=== PATIENT | female | born 1995 | race African-American/Black ===

== ENCOUNTER 2021-09-17 13:47 | Emergency (ER) | payer OTHER ==
[2021-09-17 14:15] VITALS: BP 117/75; PULSE 98; TEMP 98.4; BMI 29.3
[2021-09-17 17:07] LABS: EPI CELLS 30 /uL (0-25.1); HCG,QUALITATIVE URINE Negative; HYALINE CASTS 16 /uL (0-3.1); PH,URINE 5.5 (5.0-8.0); URINE APPEARANCE TURBID; URINE BACTERIA 98 /uL (0-1359); URINE BILIRUBIN NEGATIVE (NEGATIVE); URINE COLOR YELLOW; URINE GLUCOSE (UA) NEGATIVE (NEGATIVE); URINE KETONE 1+ (NEGATIVE); URINE LEUK ESTERASE NEGATIVE (NEGATIVE); URINE NITRITE NEGATIVE (NEGATIVE); URINE PROTEIN 3+ (NEGATIVE); URINE RBC 13 /uL (0-23.9); URINE UROBILINOGEN 0.2 mg/dL (0.2-1.0); URINE WBC 28 /uL (0-25.8)
== END 2021-09-17 18:57 | disposition home or self-care (01) ==
LOC: JERFT 13:47
DX: S06.0X0A Concussion without loss of consciousness, initial encounter (principal); M25.572 Pain in left ankle and joints of left foot; T14.8XXA Other injury of unspecified body region, initial encounter; Y04.8XXA Assault by other bodily force, initial encounter
CPT/HCPCS: 70450-TC; 70486-TC; 72100-TC-FY; 72125-TC; 73090-TC-LT-FY; 73090-TC-RT-FY; 73610-TC-LT-FY; 73630-TC-LT; 81003; 84703; 99285-25